=== PATIENT | male | born 1940 | race Caucasian/White ===

== ENCOUNTER 2022-03-24 01:33 | Emergency (ER) | payer BC ==
[~2022-03-24] VITALS: Ht 172.7 cm; Wt 68.0 kg
--- NOTE | 2022-03-24 01:49 | NUR ---
Pt to ER w/ c/o suprapubic abdominal pain 04/22 since today and urinary retention. Pt states needing brewer catheter change.. last changed 02/26/2022. Pt states this urinary retention is typically resolved with new catheter placement. Pt has 50 mL urine production since 0 on 03/23. PT denies fever, body aches, chills, n/v. Pt is w/c at baseline.
[2022-03-24 01:52] VITALS: BP_SYST 134
--- NOTE | 2022-03-24 01:58 | NUR ---
Pt to bed 8 at this time report given to LEONORA Curiel.
--- NOTE | 2022-03-24 02:16 | NUR ---
BIB W/C WITH TRIAGE NURSE LEONORA MORRIS. REPORT FROM LEONORA MORRIS. PT ALEMAN CATH IS PLUGGED OR NEEDS TO BE REPLACED. EVAL BY DR. CURTIS.
--- NOTE | 2022-03-24 02:46 | NUR ---
Attempted to irrigate brewer catheter without success. made aware. New brewer catheter to be placed per MD Saleh's verbal order.
--- NOTE | 2022-03-24 03:07 | NUR ---
UA walked to lab at this time
[2022-03-24 03:23] LABS: BILIRUBIN,URINE NEGATIVE (NEGATIVE); BLOOD, URINE 3+ (NEGATIVE); CLARITY/URINE CLEAR (CLEAR); COLOR,URINE YELLOW (YELLOW); GLUCOSE,URINE NEGATIVE (NEGATIVE); KETONES,URINE NEGATIVE (NEGATIVE); LEUKOCYTE ESTERASE ,URINE 2+ (NEGATIVE); NITRITE, URINE POSITIVE (NEGATIVE); PH,URINE 7.5 (5.0-8.0); PROTEIN URINE TRACE (NEGATIVE); UROBILINOGEN,URINE 0.2 (0.2-1.0)
[2022-03-24 03:51] LABS: RBC,URINE 20-50 /HPF (0-3)
[2022-03-24 03:52] LABS: BACTERIA,URINE FEW /HPF (None Seen); WBC,URINE 50-80 /HPF (0-3)
[2022-03-24 03:53] LABS: MUCUS,URINE 1+ /LPF (None Seen); YEAST,URINE Moderate /HPF (None Seen)
[2022-03-24] MEDS ORDERED: CEFU250T85 PO (03:58)
[2022-03-24] MEDS ORDERED: cefTRIAXone 1 GM IVPB PREMIX 50 ML IV ONE (04:00)
[2022-03-24] MEDS ORDERED: cefTRIAXone 1 GM in LIDOCAINE 1%, 20 ML MDV 2.1 ML IM ONE (04:00)
[2022-03-24] MEDS ORDERED: NACL 0.9% 1,000 ML IV ONE (04:00)
--- NOTE | 2022-03-24 04:09 | NUR ---
Patient given written and verbal discharge instructions and verbalizes understanding. ER MD discussed with patient the results and treatment provided. Patient in stable condition. ID arm band removed. IV catheter removed intact and dressing applied, no active bleeding. Rx of CEFTINE given. Patient educated on pain management and to follow up with PMD. Pain Scale . Opportunity for questions provided and answered. Medication side effect fact sheet provided.
== END 2022-03-24 04:09 | disposition home or self-care (01) ==
LOC: SED 01:33
DX: N39.0 Urinary tract infection, site not specified (principal); R33.9 Retention of urine, unspecified; R10.9 Unspecified abdominal pain; Z79.899 Other long term (current) drug therapy
CPT/HCPCS: 99284; 81000; 87086; 51702; 96372; J0696; J2001; 99283

== ENCOUNTER 2022-07-29 17:12 | Emergency (ER) | payer BC ==
[~2022-07-29] VITALS: Ht 170.2 cm; Wt 68.0 kg
[~2022-07-29 17:12] MED LIST: CEFU250T85 PO
[2022-07-29 17:15] VITALS: BP_SYST 166
[2022-07-29] MEDS ORDERED: KETOROLAC TROMETHAMINE 60 MG/2 ML VIAL IM ONE (18:20)
--- NOTE | 2022-07-29 18:30 | NUR ---
ER at bedside examining patient.
--- NOTE | 2022-07-29 18:45 | NUR ---
PT BIB SON TO ER FROM HOME. CC HEMATURIA IN ALEMAN BAG. FAMILY STATES ALEMAN INSERTED 5 HOURS AGO FROM UNTRAINED HOME HEALTH NURSE. PT COMPLAINS OF PAIN05/22.
--- NOTE | 2022-07-29 20:26 | NUR ---
Patient given written and verbal discharge instructions and verbalizes understanding. ER MD discussed with patient the results and treatment provided. Patient in stable condition. ID arm band removed.Patient educated on urinary incontinence management and to follow up with PMD. Opportunity for questions provided and answered. Medication side effect fact sheet provided.
[2022-07-30 06:50] VITALS: BP_SYST 166
== END 2022-07-29 20:26 | disposition home or self-care (01) ==
LOC: SED 17:12
DX: T83.091A Other mechanical complication of indwelling urethral catheter, initial encounter (principal); N39.0 Urinary tract infection, site not specified; M54.50 Low back pain, unspecified; Z79.899 Other long term (current) drug therapy
CPT/HCPCS: 99284; 51702; J1885

== ENCOUNTER 2023-09-23 00:24 | Emergency (ER) | payer BC ==
[~2023-09-23] VITALS: Ht 170.2 cm; Wt 70.3 kg
[2023-09-23 00:49] VITALS: BP_SYST 140; PULSE 67; RESP 16; TEMP 97.9; O2SAT 100
[2023-09-23 01:47] LABS: BILIRUBIN,URINE NEGATIVE (NEGATIVE); BLOOD, URINE 3+ (NEGATIVE); CLARITY/URINE CLEAR (CLEAR); COLOR,URINE YELLOW (YELLOW); GLUCOSE,URINE NEGATIVE (NEGATIVE); KETONES,URINE TRACE (NEGATIVE); LEUKOCYTE ESTERASE ,URINE TRACE (NEGATIVE); NITRITE, URINE POSITIVE (NEGATIVE); PH,URINE 6.5 (5.0-8.0); PROTEIN URINE NEGATIVE (NEGATIVE); UROBILINOGEN,URINE 0.2 (0.2-1.0)
[2023-09-23] MEDS ORDERED: CEFU250T85 PO (01:56)
[2023-09-23 02:10] LABS: BACTERIA,URINE MODERATE /HPF (None Seen)
[2023-09-23 02:45] VITALS: BP_SYST 144; PULSE 63; RESP 16; TEMP 97.7; O2SAT 100
== END 2023-09-23 02:45 | disposition home or self-care (01) ==
LOC: SED 00:24
DX: T83.098A Other mechanical complication of other urinary catheter, initial encounter (principal); N39.0 Urinary tract infection, site not specified; Z79.899 Other long term (current) drug therapy
CPT/HCPCS: 81000; 81001; 81015; 87086; 99284

== ENCOUNTER 2024-01-06 00:52 | Emergency (ER) | payer BC ==
[~2024-01-06] VITALS: Ht 175.3 cm; Wt 72.6 kg
[2024-01-06 01:00] VITALS: BP_SYST 140; PULSE 78; RESP 16; TEMP 97.6; O2SAT 97
[2024-01-06 01:50] VITALS: BP_SYST 140; PULSE 78; RESP 16; TEMP 97.6; O2SAT 97
== END 2024-01-06 01:50 | disposition home or self-care (01) ==
LOC: SED 00:52
DX: T83.098A Other mechanical complication of other urinary catheter, initial encounter (principal); R33.9 Retention of urine, unspecified; Z46.6 Encounter for fitting and adjustment of urinary device; Z79.899 Other long term (current) drug therapy
CPT/HCPCS: 99284